=== PATIENT | female | born 1955 | race Caucasian/White ===

== ENCOUNTER 2016-12-14 17:19 | Emergency (ER) | payer OTHER ==
[~2016-12-14] VITALS: Ht 154.9 cm; Wt 71.2 kg
--- NOTE | 2016-12-14 20:01 | ED GENERAL ADULT ---
History of Present Illness General Chief Complaint: General Adult Stated Complaint: HIGH BLOOD PRESSURE Source: patient, family, old records Exam Limitations: no limitations Vital Signs & Intake/Output Vital Signs & Intake/Output Vital Signs Date Time Temp Pulse Resp B/P Pulse O2 O2 Flow FiO2 Ox Delivery Rate 12/14 2233 179/95 12/14 2144 99.3 103 16 199/108 12/14 2144 199/108 12/14 2053 Room Air 12/14 2052 99.3 103 16 194/104 12/14 2022 103 16 194/104 97 Room Air 12/14 175 99.3 89 18 181/115 96 Room Air Allergies Coded Allergies: No Known Allergies (12/14/16) Triage Note: PT TO TRIGE FROM [facility] FOR HIGH BP 180/118. BP 181/115 IN TRIAGE. PT DENIES HX OF HTN. PT C/O HEADACHE. PT DENIES CHEST PAIN,SOB. Triage Nurses Notes Reviewed? yes Onset: Just prior to arrival Duration: hour(s):, constant Timing: recent history Injury Environment: home Severity: severe No Modifying Factors: none LMP (ages 10-50): post menopausal : No Patient currently breastfeeds: No HPI: One half months prior to admission patient complains of episodic headache. Prior to admission she was at tie carrier noted to have a blood pressure with headache and proteinuria. She denies fever chills nausea vomiting diarrhea abdominal pain chest pain shortness breath dysuria rash bleeding Past History Travel History Traveled to [place] past 21 day No Medical History Any Pertinent Medical History? none Surgical History Surgical History: non-contributory Psychosocial History What is your primary language Mauritian Tobacco Use: Never used Family History Hx Contributory? No Review of Systems Review of Systems Constitutional: Reports: no symptoms. EENTM: Reports: no symptoms. Respiratory: Reports: no symptoms. Cardiovascular: Reports: no symptoms. GI: Reports: no symptoms. Genitourinary: Reports: no symptoms. Musculoskeletal: Reports: no symptoms. Skin: Reports: no symptoms. Neurological/Psychological: Reports: see HPI, headache. Hematologic/Endocrine: Reports: no symptoms. Immunologic/Allergic: Reports: no symptoms. All Other Systems: Reviewed and Negative Physical Exam Physical Exam General Appearance: well developed/nourished, alert, awake, anxious, obese Head: atraumatic, normal appearance Eyes: Bilateral: normal appearance, PERRL, EOMI. Ears, Nose, Throat: normal pharynx, normal ENT inspection Neck: normal inspection, supple, full range of motion, no midline tenderness Respiratory: normal breath sounds, chest non-tender, no respiratory distress, quiet respiration, lungs clear Cardiovascular: regular rate/rhythm, normal peripheral pulses, norml femoral pulses equa Peripheral Pulses: 4+ carotid (R), 4+ carotid (L) Gastrointestinal: normal bowel sounds, soft, non-tender, no organomegaly Back: normal inspection, normal range of motion Extremities: normal inspection, normal capillary refill, normal range of motion, no edema, calf tenderness Neurologic/Psych: no motor/sensory deficits, awake, alert, oriented x 3, normal gait, normal mood/affect, 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 Skin: intact, normal color, warm/dry Lymphatic: no anterior cervical jeff Core Measures ACS in differential dx? No CVA/TIA Diagnosis: No Severe Sepsis Present: No Septic Shock Present: No Progress Differential Diagnoses I considered the following diagnoses in my evaluation of the patient: Hypertension tension headaches Plan of Care: Orders Procedure Date/time Status TOTAL TRIODOTHYROXINE 12/14 2010 Complete FREE T4 12/14 2010 Complete URINALYSIS 12/14 2000 Complete TSH REFLEX 12/14 1935 Complete TROPONIN LEVEL 12/14 1935 Complete MAGNESIUM 12/14 1935 Complete COMPREHENSIVE METABOLIC PANEL 12/14 1935 Complete CBC WITHOUT DIFFERENTIAL 12/14 1935 Complete EKG 12/14 1935 Active Current Medications Sig/Geoff Start time Last Medication Dose Stop Time Status Admin Labetalol HCl 10 MG ONCE ONE 12/14 2029 CAN (Trandate) 12/14 2030 Laboratory Tests 12/14/162010: Anion Gap 12, Estimated GFR > 60, BUN/Creatinine Ratio 25.7 H, Glucose 98, Calcium 10.1, Magnesium 2.1, Total Bilirubin 0.6, AST 40 H, ALT 50, Alkaline Phosphatase 94, Troponin I < 0.01, Total Protein 8.3 H, Albumin 5.1 H, Globulin 3.2, Albumin/Globulin Ratio 1.6, Free T4 1.15, Total T3 1.33, TSH &T3 & Free T4 Intrp 4.380 H, CBC w Diff NO MAN DIFF REQ, RBC 5.07, MCV 87.0, MCH 29.4 , RDW 12.9, MPV 8.3, Gran % 70.6, Lymphocytes % 21.7, Monocytes % 6.0, Eosinophils % 1.0, Basophils % 0.7, Absolute Granulocytes 6.9 H, Absolute Lymphocytes 2.1, Absolute Monocytes 0.6, Absolute Eosinophils 0.1, Absolute Basophils 0.1, PUBS MCHC 33.8, Urine Color STRAW, Urine Clarity CLEAR, Urine pH 6.5, Ur Specific [place] <= 1.005, Urine Protein NEG, Urine Ketones NEG, Urine Nitrite NEG, Urine Bilirubin NEG, Urine Urobilinogen 0.2, Ur Leukocyte Esterase MOD H, Ur Microscopic SEDIMENT EXAMINED, Urine WBC 15-25 H, Ur Epithelial Cells FEW, Urine Hemoglobin TRACE-LYSED, Urine Glucose NEG Diagnostic Imaging: Viewed by Me: Radiology Read, CT Scan. Discussed w/RAD: Radiology Read, CT Scan. Radiology Impression: no acute abnormality CXR Impression: no acute abnormality, no infiltrates, normal size heart, normal mediastinum Initial ED EKG: normal axis, normal intervals, normal p-waves, normal QRS complex, normal sinus rhythm, nonspecific ST T wave chg Departure Departure Time of Disposition: 2247 Disposition: HOME OR SELF CARE Condition: Stable Clinical Impression Primary Impression: Hypertension Qualifiers: Hypertension type: essential hypertension Qualified Code: I10 - Essential (primary) hypertension Secondary Impressions: Headache Qualifiers: Headache type: unspecified Headache chronicity pattern: acute headache Intractability: not intractable Qualified Code: R51 - Headache Departure Forms: Customer Survey General Discharge Information Prescriptions: Current Visit Scripts Lisinopril 1 TAB PO DAILY #30 TAB Ref 1 Critical Care Note Critical Care Note Critical Care Time: non-applicable
[2016-12-14 20:21] LABS: ABSOLUTE BASOPHIL COUNT 0.1 /CUMM (0.0-0.2); ABSOLUTE EOSINOPHIL COUNT 0.1 /CUMM (0.0-0.7); ABSOLUTE GRANULOCYTE CT 6.9 /CUMM (1.4-6.5); ABSOLUTE LYMPH COUNT 2.1 /CUMM (1.2-3.4); ABSOLUTE MONOCYTE COUNT 0.6 /CUMM (0.10-0.60); BASOPHIL % 0.7 % (0.0-2.0); GRANULOCYTE % 70.6 % (42.2-75.2); HEMATOCRIT 44.1 % (37-47); MEAN CORPUSCULAR HGB 29.4 PG (27.0-31.0); MEAN CORPUSCULAR HGB CONC 33.8 G/DL (33.0-37.0); MEAN PLATELET VOLUME 8.3 FL (7.4-10.4); PLATELET COUNT 299 /CUMM (130-400); RBC DISTRIBUTION WIDTH 12.9 % (11.5-14.5); RED BLOOD CELL CT 5.07 /CUMM (4.20-5.40); WHITE BLOOD CELL COUNT 9.7 /CUMM (4.8-10.8)
--- NOTE | 2016-12-14 20:41 | CT SCAN REPORT ---
EXAMINATION: CT HEAD WITHOUT CONTRAST CLINICAL INFORMATION: Headache. Hypertension. Evaluate for acute intracranial hemorrhage. COMPARISON: None. TECHNIQUE: Contiguous axial imaging was performed from the skull base to vertex without intravenous administration of contrast. DLP: 600 mGy-cm FINDINGS: No acute intracranial abnormality. No acute intracranial hemorrhage, mass or mass effect or abnormal extra-axial fluid collections. The density within the dural venous sinuses is within normal limits. The ventricles are normal in size, without hydrocephalus. There are no focal areas of hypoattenuation within a vascular distribution to suggest acute transcortical ischemia. The basilar cisterns are patent. No acute calvarial abnormality is identified. Soft tissues appear unremarkable. The imaged paranasal sinuses and mastoid air cells are well aerated. IMPRESSION: No acute intracranial abnormality.
--- NOTE | 2016-12-14 21:00 | RADIOLOGY REPORT ---
EXAMINATION: XR CHEST CLINICAL INFORMATION: Hypertension and headache. COMPARISON: None. TECHNIQUE: PA and lateral views of the chest were obtained. FINDINGS: The lungs are well-expanded and clear without focal airspace consolidation. No pleural effusions or pneumothoraces are identified. Cardiomediastinal contours are within normal limits. Soft tissues are unremarkable. No acute osseous abnormality is identified. IMPRESSION: No acute pulmonary process.
[2016-12-14] MEDS ORDERED: LISINOPRIL5 M1 PO (22:50)
[2016-12-14 23:03] VITALS: BP 156/93
== END 2016-12-14 23:32 ==
LOC: ERH 17:19
PROVIDERS: Emergency Medicine
DX: I10 Essential (primary) hypertension (principal)
CPT/HCPCS: 81001; 93005; 93010; 96374; 96375; 96376; J0360; J1885

== ENCOUNTER → 2017-04-13 | Day surgery (SDC) | payer OTHER ==
[~2017-04-13] VITALS: Ht 157.5 cm; Wt 68.9 kg
[~2017-04-13] MED LIST: LISINOPRIL5 M1 PO
--- NOTE | 2017-04-13 12:44 | Operative Report ---
Operative/Inv Procedure Report Surgery Date: 04/13/17 Name of Procedure: Right partial mastectomy with wire localization and sentinel lymph node biopsy Pre-Operative Diagnosis: Right breast cancer Post-Operative Diagnosis: Same Estimated Blood Loss: less than 50ml Surgeon/Design Drafter Chief: BRIONNA WOODS MD Anesthesia: laryngeal mask airway Specimens: Right partial mastectomy, cranial margin, caudal margin, deep margin, medial margin, lateral margin and a lymph node Operative/Procedure Note Note: Patient is brought to the operating room on 04/13/2017 after preoperative wire localization and lymphoscintigraphy were performed and the films were reviewed. Placed under anesthesia and 3 mL of methylene blue diluted with 2 mL of saline was injected in the retroareolar fashion. Anesthesia was administered and the right breast was prepped and draped in a sterile fashion using ChloraPrep. She was given 2 g of Ancef. The breast was approached. There were 2 bracketed wires to encompass the area of concern. Therefore a radial incision was used at 9:00 in the right breast and an ellipse of skin was taken over the tumor. The dissection started down in the subcutaneous tissue down to the chest wall. Specimen was removed and marked for orientation using margin map. Intraoperative x-ray confirmed the presence of 2 clips in the specimen. He'll margin appeared close, and therefore a wide cranial margin was taken the entire length of the lumpectomy. Additional margins were taken in the caudal, medial, and lateral position. Was taken down to the pectoralis fascia. The axilla was approached through the same incision. The axilla was entered and a single hot lymph node was identified. Counts were to 4000. After excision there was no hot, blue, or palpable lymph nodes in the axilla. Hemostasis adequate. The margins of the lumpectomy bed were marked using mammary clips. Deep tissue was approximated using interrupted Vicryl sutures, and the skin was closed using a running Biosyn subcutaneous color stitch. Steri-Strips and sterile dressings were applied, the patient was transferred to the recovery room in satisfactory condition having tolerated the procedure well.
--- NOTE | 2017-04-13 15:10 | MAMMOGRAPHY REPORT ---
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 Preoperative needle localization is requested. COMPARISON: Prior studies done on 03/22/2017. TECHNIQUE/FINDINGS: The details of the procedure, as well as the risks, benefits, and alternatives to the procedure were explained to the patient in detail and all of her questions were answered, after which, written informed consent was obtained. Prior to the procedure, the previous sonographic-guided tissue marker placement was localized using CC and ML views. Subcentimeter spiculated mass and 2 superimposed tissue markers from prior ultrasound-guided biopsy done on 03/22/2017 are identified at upper outer quadrant at mid to posterior depth. A time out was performed, the lesions intended for needle localization was targeted and the skin of the right breast was then prepped and draped in the usual sterile fashion. Using mammographic guidance, sterile technique and buffered 2% approximately 8 mL of lidocaine without epinephrine for local anesthesia, a 5 cm Kopans needle-wire each was placed at the site of the tissue marker at both sites in a bracketed fashion. The patient tolerated the procedure well. The mammogram was appropriately labeled and was sent to the OR with the patient. Subsequently, following excision of the both the masses, specimen radiography was performed which revealed intact wires, and both masses containing tissue markers. IMPRESSION: 1. Successful mammographic-guided needle localization using bracket technique of previously documented 2 adjacent invasive carcinomas involving upper outer quadrant of the right breast. 2. Final specimen radiograph confirming removal of both the masses and the previously placed tissue markers and intact wires.
== END ==
LOC: STS 01:47 → CBW.IIU 09:00 → STS 09:00 → CBW.MAMMO 09:30
DX: C50.411 Malignant neoplasm of upper-outer quadrant of right female breast (principal); Z17.0 Estrogen receptor positive status [ER+]; I10 Essential (primary) hypertension; G35 Multiple sclerosis
CPT/HCPCS: J0131; J0690; J1100; J1885; J2001; J2250; J2405